=== PATIENT | female | born 1955 | race African-American/Black ===

== ENCOUNTER → 2017-05-22 | Outpatient (CLI) | payer BC, OTHER ==
[~2017-05-22] MED LIST: ACETAMINOPHEN-120 ML PO; BACTRIM DS TAB1 EACH PO; LEVOTHYROXINE0.2 M1 PO; NAPROXEN DELAY500 M1 PO
== END ==
LOC: RAD 01:45
DX: Z12.31 Encounter for screening mammogram for malignant neoplasm of breast (principal)

== ENCOUNTER → 2018-05-25 | Outpatient (CLI) | payer BC, OTHER | LOC: RAD 01:53 | DX: Z12.31 Encounter for screening mammogram for malignant neoplasm of breast (principal) ==

== ENCOUNTER → 2019-07-19 | Outpatient (CLI) | payer BC, OTHER | LOC: RAD 12:10 | DX: Z12.31 Encounter for screening mammogram for malignant neoplasm of breast (principal) ==

== ENCOUNTER 2020-01-28 08:58 | Emergency (ER) | payer BC, OTHER ==
[~2020-01-28] VITALS: Ht 157.5 cm; Wt 88.5 kg
[2020-01-28] MEDS ORDERED: LEVO-T100 MCG PO (09:12)
[2020-01-28] MEDS ORDERED: NORVASC5 M1 PO (09:12)
[2020-01-28 09:59] VITALS: BP 131/58
== END 2020-01-28 10:10 | disposition home or self-care (01) ==
LOC: ER 08:58
DX: S00.83XA Contusion of other part of head, initial encounter (principal); I10 Essential (primary) hypertension; Z79.899 Other long term (current) drug therapy; W03.XXXA Other fall on same level due to collision with another person, initial encounter; Y93.89 Activity, other specified; Y92.89 Other specified places as the place of occurrence of the external cause; Y99.8 Other external cause status

== ENCOUNTER → 2021-11-04 | Outpatient (CLI) | payer BC, OTHER ==
[~2021-11-04] MED LIST changes: +LEVO-T100 MCG PO; +NORVASC5 M1 PO
== END ==
LOC: BC 09:01
PROVIDERS: ATTEND Internal Medicine
DX: Z12.31 Encounter for screening mammogram for malignant neoplasm of breast (principal)